=== PATIENT | female | born 1995 | race Caucasian/White ===

== ENCOUNTER → 2025-02-16 11:28 | Outpatient (CLI) | payer BC, SELFPAY ==
[2025-02-16 13:05] LABS: COVID-19 CEPHEID 4-PLEX PCR Negative (Negative); Influenza A - CEPHEID Flu A POSITIVE (NEGATIVE); Influenza B - CEPHEID Flu B NEGATIVE (NEGATIVE)
== END ==
PROVIDERS: Visit Provider Physician Assistant
DX: R05.1 Acute cough (principal)
CPT/HCPCS: 87637